=== PATIENT | female | born 2005 | race Caucasian/White ===

== ENCOUNTER → 2024-04-08 12:25 | Outpatient (REF) | payer BC, SELFPAY | LOC: RAD 12:25 | PROVIDERS: ATTENDING PHYSICIAN Family Medicine | DX: R10.31 Right lower quadrant pain (principal) | CPT/HCPCS: 74177; Q9967 ==

== ENCOUNTER → 2024-05-09 16:22 | Outpatient (REF) | payer BC, SELFPAY | LOC: RAD 16:22 | PROVIDERS: ATTENDING PHYSICIAN Family Medicine; FAMILY PHYSICIAN Family Medicine | DX: R10.11 Right upper quadrant pain (principal); R10.31 Right lower quadrant pain | CPT/HCPCS: 76700; 76830; 76856 ==

== ENCOUNTER → 2025-05-09 08:22 | Outpatient (REF) | payer BC, SELFPAY | LOC: HWRAD 08:22 | PROVIDERS: ATTENDING PHYSICIAN Physician Assistant Medical | DX: R10.21 Pelvic and perineal pain right side (principal); N83.201 Unspecified ovarian cyst, right side | CPT/HCPCS: 76830; 76856 ==